=== PATIENT | female | born 2000 | race Caucasian/White ===

== ENCOUNTER → 2020-09-28 | Outpatient (REF) | payer OTHER, SELFPAY ==
[2020-09-28 11:48] LABS: APPEARANCE, URINE HAZY (CLEAR); BACTERIA, URINE AUTO NEGATIVE (NEGATIVE); BILIRUBIN, URINE AUTO NEGATIVE (NEGATIVE); BLOOD, URINE BLOOD NEGATIVE (NEGATIVE); COLOR, URINE YELLOW (YELLOW); GLUCOSE, URINE (UA) AUTO NEGATIVE (NEGATIVE); KETONE, URINE AUTO NEGATIVE (NEGATIVE); LEUKOCYTE ESTERASE, URINE AUTO NEGATIVE (NEGATIVE); MUCUS, URINE SMALL (NEGATIVE); NITRITE, URINE AUTO NEGATIVE (NEGATIVE); PROTEIN, URINE AUTO NEGATIVE (NEGATIVE); RBC, URINE AUTO 2 /HPF (0-3); SPECIFIC GRAVITY URINE AUTO 1.023 (1.002-1.035); SQUAMOUS EPITHELIAL CELL UR AU 8 /HPF (0-6); WBC, URINE AUTO 6 /HPF (0-3)
== END ==
LOC: M SFHCLERA 11:19
PROVIDERS: ATTEND Student in an Organized Health Care Education/Training Program
DX: N30.00 Acute cystitis without hematuria (principal)
CPT/HCPCS: 81001; 87086; G0463

== ENCOUNTER → 2020-10-18 | Outpatient (REF) | payer OTHER ==
[2020-10-18 14:05] LABS: APPEARANCE, URINE CLEAR (CLEAR); BACTERIA, URINE AUTO NEGATIVE (NEGATIVE); BILIRUBIN, URINE AUTO NEGATIVE (NEGATIVE); BLOOD, URINE BLOOD NEGATIVE (NEGATIVE); COLOR, URINE YELLOW (YELLOW); GLUCOSE, URINE (UA) AUTO NEGATIVE (NEGATIVE); KETONE, URINE AUTO NEGATIVE (NEGATIVE); LEUKOCYTE ESTERASE, URINE AUTO NEGATIVE (NEGATIVE); MUCUS, URINE MODERATE (NEGATIVE); NITRITE, URINE AUTO NEGATIVE (NEGATIVE); PROTEIN, URINE AUTO 1+ mg/dL (NEGATIVE); RBC, URINE AUTO 0 /HPF (0-3); SPECIFIC GRAVITY URINE AUTO 1.029 (1.002-1.035); SQUAMOUS EPITHELIAL CELL UR AU 2 /HPF (0-6); UROBILINOGEN, URINE AUTO 0.2 mg/dL (0.0-2.0); WBC, URINE AUTO 1 /HPF (0-3)
== END ==
LOC: M SMT 13:10
PROVIDERS: ATTEND Nurse Practitioner Family
DX: R39.89 Other symptoms and signs involving the genitourinary system (principal)

== ENCOUNTER 2020-12-14 10:16 | Emergency (ER) | payer OTHER ==
[~2020-12-14] VITALS: Ht 160 cm; Wt 70.4 kg
--- OUTSIDE RECORDS SUMMARY | 2020-12-14 10:21 | CCD ---
Author Author [facility] Organization [facility] Address Unknown Phone Unavailable Care Team Providers Care Inside Sales Advisor Name Role Phone Micheline Yuan Unavailable PROBLEMS Type Condition ICD9-CM Code QWC14-QP Code Onset Dates Condition S tatus SNOMED Code Notes Problem Bladder pain R39.89 Active 72397716 Problem Depression, unspecified depression type F32.9 Active [id number] ALLERGIES No Known Allergies ENCOUNTERS from 2000 to 2020-12-01 Encounter Location Date Provider Diagnosis [facility] [address] [place] [address] Nov, Micheline Yuan Depression, unspecified depression type F32.9 IMMUNIZATIONS No Information SOCIAL HISTORY Tobacco Use: Social History Observation Description Date Details (start date - stop date) Current Smoker Sex Assigned At : Social History Observation Description Sex Assigned At Unknown Audit Question Answer Notes Total Score: 0 Interpretation: Alcohol Education Language: Question Answer Notes Languages spoken: Indonesian Yazdanism: Question Answer Notes Yazdanism 33 None Sexual Hx: Question Answer Notes Had sex in the last 12 months (vaginal, oral, or anal)? Yes LMP: 09/2020 Have you ever had an STD? No with Men only Use protection? Yes How often? Some of the time Drug and Alcohol Question Answer Notes Total Score: 0 Interpretation: No problems reported Alcohol Screening: Question Answer Notes Did you have a drink containing alcohol in the past year? No Points 0 Interpretation Negative Tobacco Use: Question Answer Notes Are you a: current smoker Juul REASON FOR REFERRAL No Information VITAL SIGNS Weight 151 lbs Nov, Height 63 in Nov, BMI 26.75 kg/m2 Nov, Heart Rate 96 /min Nov, Respiratory Rate 18 /min Nov, Temperature 98.3 degrees Fahrenheit Nov, Oximetry 98% Nov, Blood pressure systolic 116 mm Hg Nov, Blood pressure diastolic 73 mm Hg Nov, MEDICATIONS Medication SIG (Take, Route, Frequency, Duration) Notes Start Da te End Date Status Pyridium 200 MG 1 tablet after meals Orally three times daily as needed for 10 days Oct, Not-Taking Macrobid 100 MG as directed Orally every 12 hours for 5 days Sep, Not-Taking Sprintec 28 0.25-35 MG-MCG 1 tablet Orally Once a day for 90 days Active PROCEDURES No Information RESULTS No Results REASON FOR VISIT referral for therapy MEDICAL (GENERAL) HISTORY Type Description Date Medical History depression Medical History recurrent UTIs Surgical History No Surgical history information Goals Section No Information Health Concerns No Information MEDICAL EQUIPMENT No Information MENTAL STATUS No Information FUNCTIONAL STATUS No Information ASSESSMENTS Encounter Date Diagnosis Assessment Notes Treatment Notes Treatm ent Clinical Notes Nov, Depression, unspecified depression type (ICD-10 - F32.9) 20 y old F with history of depression, is requesting a referral to see a counselor at this time. She denies any suicidal or homicidal ideation, feels safe at home, and reports a good support system at home through her . She refuses to be started on any medication at this time. She has been writing in a journal which helps, however would like to actually speak with someone instead. PLAN OF TREATMENT Treatment Notes Assessment Notes Clinical Notes Depression, unspecified depression type 20 y old F with history of depression, is requesting a referral to see a counselor at this time. She denies any suicidal or homicidal ideation, feels safe at home, and reports a good support system at home through her . She refuses to be started on any medication at this time. She has been writing in a journal which helps, however would like to actually speak with someone instead. Next Appt Details prn Reason:f/u as needed Provider Name:Rashi Dave Jaskaran, 2021-01-16 10:15:00 AM, [address], [place], [address], Follow Up:prnf/u as needed Insurance Providers Payer Name Payer Address Payer Phone Insured Name Patient Relati onship to Insured Coverage Start Date Coverage End Date [address] [phone] TYLER BABIN
--- OUTSIDE RECORDS SUMMARY | 2020-12-14 10:21 | CCD ---
Author Author [facility] Organization [facility] Address Unknown Phone Unavailable Support Name Relationship Address Phone TYLER BABIN Next Of Kin [address] [facility] [address] [place], [place] [id number] TYLER BABIN [facility] [address] [place] [address] Unavailable Re-disclosure Warning The records that you are about to access may contain information from federally-assisted alcohol or drug abuse programs. If such information is present, then the following federally mandated warning applies: This information has been disclosed to you from records protected by federal confidentiality rules (42 CFR part 2). The federal rules prohibit you from making any further disclosure of this information unless further disclosure is expressly permitted by the written consent of the person to whom it pertains or as otherwise permitted by 42 CFR part 2. A general authorization for the release of medical or other information is NOT sufficient for this purpose. The Federal rules restrict any use of the information to criminally investigate or prosecute any alcohol or drug abuse patient.The records that you are about to access may contain highly sensitive health information, the redisclosure of which is protected by Article 27-F of the [facility] Public Health law. If you continue you may have access to information: Regarding HIV / AIDS; Provided by facilities licensed or operated by the [facility] Office of Mental Health; or Provided by the [facility] Office for People With Developmental Disabilities. If such information is present, then the following [facility] mandated warning applies: This information has been disclosed to you from confidential records which are protected by state law. State law prohibits you from making any further disclosure of this information without the specific written consent of the person to whom it pertains, or as otherwise permitted by law. Any unauthorized further disclosure in violation of state law may result in a fine or snf sentence or both. A general authorization for the release of medical or other information is NOT sufficient authorization for further disc losure. Encounters Encounter Providers Location Date Indications Data Source(s ) Outpatient [address] [facility] [address] 11/28/2020 12:00:00 AM EST eCW1 ([facility]) Outpatient [address] [facility] [address] 10/18/2020 12:00:00 AM EST eCW1 ([facility]) Outpatient [address] [facility] [address] 09/28/2020 12:00:00 AM EST eCW1 ([facility]) Medications Medication Brand Name Start Date Product Form Dose Route Admi nistrative Instructions Pharmacy Instructions Status Indications Reaction Description Data Source(s) Phenazopyridine hydrochloride 200 MG Oral Tablet [Pyri dium] Pyridium 200 MG Pyridium 200 MG 10/18/2020 12:00:00 AM EST 1.0 {tablet_after_meals} active Pyridium 200 MG eCW1 ([facility]) Phenazopyridine hydrochloride 200 MG Oral Tablet [Pyri dium] Pyridium 200 MG Pyridium 200 MG 10/18/2020 12:00:00 AM EST 1.0 {tablet_after_meals} suspended Pyridium 200 MG eCW1 ([facility]) NITROFURANTOIN, MACROCRYSTALS 25 MG / Ni trofurantoin, Monohydrate 75 MG Oral Capsule [Macrobid] Macrobid 100 MG Macrobid 100 MG 09/28/2020 12:00:00 AM EST active Macrobid 100 MG eCW1 ([facility]) NITROFURANTOIN, MACROCRYSTALS 25 MG / Ni trofurantoin, Monohydrate 75 MG Oral Capsule [Macrobid] Macrobid 100 MG Macrobid 100 MG 09/28/2020 12:00:00 AM EST suspended Macrobid 100 MG eCW1 ( [facility]) NITROFURANTOIN, MACROCRYSTALS 25 MG / Ni trofurantoin, Monohydrate 75 MG Oral Capsule [Macrobid] Macrobid 100 MG Macrobid 100 MG 09/28/2020 12:00:00 AM EST suspended Macrobid 100 MG eCW1 ( [facility]) Insurance Providers Payer name Policy type / Coverage type Policy ID Covered alliance party ID Covered alliance party's relationship to dickinson Policy Dickinson Plan Information [facility] [id number] [facility] [id number] SELF PAY ONLY UNK SP UNK Problems, Conditions, and Diagnoses Code Display Name Description Problem Type Effective Dates Data Source(s) F32.9 [id number] Depression, unspecified depression type P roblem 11/28/2020 12:00:00 AM EST eCW1 ([facility]) R39.89 Bladder pain Bladder pain Problem 10/18/2020 12:00:00 A M EST eCW1 ([facility]) Results ID Date Data Source URINE CULTURE 10/18/2020 12:00:00 AM EST eCW1 ([facility]) Name Value Range Interpretation Code Description Data Laura rce(s) Supporting Document(s) URINE CULTURE eCW1 ([facility]) ID Date Data Source UA URINALYSIS 10/18/2020 12:00:00 AM EST eCW1 ([facility]) Name Value Range Interpretation Code Description Data Laura rce(s) Supporting Document(s) UA URINALYSIS eCW1 ([facility]) ID Date Data Source [id number] 08/27/2020 12:00:00 AM EDT [facility] Name Value Range Interpretation Code Description Data Laura rce(s) Supporting Document(s) SARS coronavirus 2 RNA [facility] This lab was ordered by [facility] and rep orted by [facility]. Procedure Social History Code Duration Value Status Description Data Source(s ) Smoking 11/28/2020 12:00:00 AM EST Current Smoker completed Curre nt Smoker eCW1 ([facility]) Smoking 10/18/2020 12:00:00 AM EST Current Smoker completed Curre nt Smoker eCW1 ([facility]) Smoking 09/28/2020 12:00:00 AM EST Current Smoker completed Curre nt Smoker eCW1 ([facility]) Vital Signs ID Date Data Source UNK Name Value Range Interpretation Code Description Data Source(s) Diastolic blood pressure 73 mm[Hg] 73 mm[Hg] eCW1 ([facility]) Systolic blood pressure 116 mm[Hg] 116 mm[Hg] e CW1 ([facility]) Body temperature 98.3 [degF] 98.3 [degF] eCW1 ( [facility]) Respiratory rate 18 /min 18 /min eCW1 ([facility]) Heart rate 96 /min 96 /min eCW1 ([facility]) Body mass index (BMI) [Ratio] 26.75 kg/m2 26.75 kg/m2 eCW1 ([facility]) Body height 63 [in_i] 63 [in_i] eCW1 ([facility]) Body weight 151 [lb_av] 151 [lb_av] eCW1 ([facility]) Diastolic blood pressure 76 mm[Hg] 76 mm[Hg] eCW1 ([facility]) Systolic blood pressure 118 mm[Hg] 118 mm[Hg] e CW1 ([facility]) Body temperature 96.2 [degF] 96.2 [degF] eCW1 ( [facility]) Respiratory rate 18 /min 18 /min eCW1 ([facility]) Heart rate 85 /min 85 /min eCW1 ([facility]) Body mass index (BMI) [Ratio] 26.60 kg/m2 26.60 kg/m2 eCW1 ([facility]) Body height 63 [in_i] 63 [in_i] eCW1 ([facility]) Body weight 150.2 [lb_av] 150.2 [lb_av] eCW1 ([facility]) Diastolic blood pressure 71 mm[Hg] 71 mm[Hg] eCW1 ([facility]) Systolic blood pressure 118 mm[Hg] 118 mm[Hg] e CW1 ([facility]) Body temperature 98.3 [degF] 98.3 [degF] eCW1 ( [facility]) Respiratory rate 18 /min 18 /min eCW1 ([facility]) Heart rate 85 /min 85 /min eCW1 ([facility]) Body mass index (BMI) [Ratio] 26.75 kg/m2 26.75 kg/m2 eCW1 ([facility]) Body height 63 [in_i] 63 [in_i] eCW1 ([facility]) Body weight 151 [lb_av] 151 [lb_av] eCW1 ([facility]) Patient Treatment Plan of Care Planned Activity Planned Date Details Description Data Source (s) Phenazopyridine hydrochloride 200 MG Oral Tablet [Pyri dium] 10/18/2020 12:00:00 AM EST eCW1 ([facility]) NITROFURANTOIN, MACROCRYSTALS 25 MG / Ni trofurantoin, Monohydrate 75 MG Oral Capsule [Macrobid] 09/28/2020 12:00:00 AM EST eC W1 ([facility])
--- OUTSIDE RECORDS SUMMARY | 2020-12-14 10:21 | CCD ---
Author Author [facility] Organization [facility] Address Unknown Phone Unavailable Care Team Providers Care Silo Painter Name Role Phone Jayant Yuanell Unavailable PROBLEMS No Information ALLERGIES No Known Allergies ENCOUNTERS from 2000 to 2020-09-29 Encounter Location Date Provider Diagnosis [facility] [address] [place] [address] Sep, Micheline Yuan Encounter for medical examination to [facility] Z00.00 ; Acute cystitis without hematuria N30.00 and Encounter for surveillance of contraceptive pills Z30.41 IMMUNIZATIONS No Information SOCIAL HISTORY Tobacco Use: Social History Observation Description Date Details (start date - stop date) Current Smoker Sex Assigned At : Social History Observation Description Sex Assigned At Unknown Audit Question Answer Notes Total Score: 0 Interpretation: Alcohol Education Language: Question Answer Notes Languages spoken: Ukrainian Baptism: Question Answer Notes Baptism 33 None Drug and Alcohol Question Answer Notes Total Score: 0 Interpretation: No problems reported Tobacco Use: Question Answer Notes Are you a: current smoker Juul REASON FOR REFERRAL No Information VITAL SIGNS Weight 151 lbs Sep, Height 63 in Sep, BMI 26.75 kg/m2 Sep, Heart Rate 85 /min Sep, Respiratory Rate 18 /min Sep, Temperature 98.3 degrees Fahrenheit Sep, Oximetry 99 Sep, Blood pressure systolic 118 mm Hg Sep, Blood pressure diastolic 71 mm Hg Sep, MEDICATIONS Medication SIG (Take, Route, Frequency, Duration) Start Date En d Date Status Sprintec 28 0.25-35 MG-MCG 1 tablet Orally Once a day for 90 days Active Macrobid 100 MG as directed Orally every 12 hours for 5 days 12 Nov , 2020 Active PROCEDURES No Information RESULTS Component Value Reference Range UA URINALYSIS Reviewed date:09/28/2020 11:57:25 Interpretation: Performing Lab:[facility] [address] [facility] [address] , ,[place] [address] URINE CULTURE Reviewed date:09/29/2020 10:05:44 Interpretation:Normal Performing Lab:[facility] [address] [facility] [address] , ,[place] [address] REASON FOR VISIT NEW PATIENT , UTI MEDICAL (GENERAL) HISTORY Type Description Date Medical History depression Medical History recurrent UTIs Surgical History No know Surgical history Goals Section No Information Health Concerns No Information MEDICAL EQUIPMENT No Information MENTAL STATUS No Information FUNCTIONAL STATUS No Information ASSESSMENTS Encounter Date Diagnosis Notes Sep, Encounter for medical examin ation to establish care (ICD-10 - Z00.00) Sep, Encounter for surveillance o f contraceptive pills (ICD-10 - Z30.41) Sep, Acute cystitis without hematuria (ICD-10 - N30.00) PLAN OF TREATMENT Medication Medication Name Sig Start Date Stop Date Sprintec 28 0.25-35 MG-MCG 1 tablet Orally Once a day for 90 day s Macrobid 100 MG as directed Orally every 12 hours for 5 days Sep, Treatment Notes Assessment Notes Clinical Notes Acute cystitis without hematuria Patient was advised to keep well-hydrated. Drink at least 8 glasses of water per day. Advised not to go long periods of time without voiding. We'll follow-up urine culture. Patient was advised that if UTI symptoms do not improve after 3 days of antibiotic use, or if she develops any fevers or malaise either go to the ER immediately or return for reevaluation. Patient expressed understanding and agreed with plan. Encounter for surveillance of contraceptive pills Patient requested refill of control at this time. Next Appt Details prn Reason: Provider Name:Kain Gann Tank, 2020-09 09:00:00 AM, [address], [place], [address], Insurance Providers Payer Name Payer Address Payer Phone Insured Name Patient Relati onship to Insured Coverage Start Date Coverage End Date SELF PAY ONLY - SP1 TYLER BABIN
--- OUTSIDE RECORDS SUMMARY | 2020-12-14 10:21 | CCD ---
Author Author [facility] Organization [facility] Address Unknown Phone Unavailable Care Team Providers Care Plastic Printer Name Role Phone Rashi Jessica Unavailable PROBLEMS Type Condition ICD9-CM Code ZCL39-GQ Code Onset Dates Condition S tatus SNOMED Code Notes Problem Bladder pain R39.89 Active [id number] ALLERGIES No Known Allergies ENCOUNTERS from 2000 to 2020-10-23 Encounter Location Date Provider Diagnosis [facility] [address] [place] [address] Oct Rashi Jessica Bladder pain R39.89 IMMUNIZATIONS No Information SOCIAL HISTORY Tobacco Use: Social History Observation Description Date Details (start date - stop date) Current Smoker Sex Assigned At : Social History Observation Description Sex Assigned At Unknown Audit Question Answer Notes Total Score: 0 Interpretation: Alcohol Education Language: Question Answer Notes Languages spoken: Belgian Judaism: Question Answer Notes Judaism 33 None Sexual Hx: Question Answer Notes [...] FOR REFERRAL No Information VITAL SIGNS Weight 150.2 lbs Oct, Height 63 in Oct, BMI 26.60 kg/m2 Oct, Heart Rate 85 /min Oct, Respiratory Rate 18 /min Oct, Temperature 96.2 degrees Fahrenheit Oct, Oximetry 98 Oct, Blood pressure systolic 118 mm Hg Oct, Blood pressure diastolic 76 mm Hg Oct, MEDICATIONS Medication SIG (Take, Route, Frequency, Duration) Notes Start Da te End Date Status Macrobid 100 MG as directed Orally every 12 hours for 5 days Sep, Not-Taking Sprintec 28 0.25-35 MG-MCG 1 tablet Orally Once a day for 90 days Active Pyridium 200 MG 1 tablet after meals Orally three times daily as needed for 10 days Oct, Active PROCEDURES No Information RESULTS Component Value Reference Range UA URINALYSIS Reviewed date:10/18/2020 15:02:33 Interpretation: Performing Lab:[facility] [address] [facility] [address] , ,[place] [address] URINE CULTURE Reviewed date:10/19/2020 10:31:12 Interpretation: Performing Lab:[facility] [address] [facility] [id number] , ,[place] [address] REASON FOR VISIT Recurrent urinary tract infection acute cystitis withouT hematuria. MEDICAL (GENERAL) HISTORY Type Description Date Medical History depression Medical History recurrent UTIs Surgical History No Surgical history information Goals Section No Information Health Concerns No Information MEDICAL EQUIPMENT No Information MENTAL STATUS No Information FUNCTIONAL STATUS No Information ASSESSMENTS Encounter Date Diagnosis Assessment Notes Treatment Notes Treatm ent Clinical Notes Oct, Bladder pain (ICD-10 - R39.89) Will send UA and culture today. She will call our office with any symptoms so we can track and see if she is having true UTI's or if it is more of and intersticial cystitis. Pyridium sent to [facility] to use prn for symptoms. F/U in 3 months or sooner if needed. PLAN OF TREATMENT Medication Medication Name Sig Start Date Stop Date Pyridium 200 MG 1 tablet after meals Orally three times daily as needed for 10 days Oct, Treatment Notes Assessment Notes Clinical Notes Bladder pain Will send UA and cul ture today.She will call our office with any symptoms so we can track and see if she is having true UTI's or if it is more of and intersticial cystitis.[facility].F/U in 3 months or sooner if needed. Next Appt Details 3 Months Reason:UTI's Provider Name:Rashi Jessica, 2021-01-16 10:15:00 AM, [address], [place], [address], Follow Up:3 MonthsUTI's Insurance Providers Payer Name Payer Address Payer Phone Insured Name Patient Relati onship to Insured Coverage Start Date Coverage End Date [place] [phone] TYLER BABIN
[2020-12-14] MEDS ORDERED: SPRI28TA (10:32)
[2020-12-14] MEDS ORDERED: METOCLOPRAMIDE INJ 10MG/2ML VIAL (J2765 PER 1) IV ONE (11:45)
[2020-12-14] MEDS ORDERED: NS 1,000 ML IV ONE (11:45)
[2020-12-14] MEDS ORDERED: diphenhydrAMINE 50MG/ML VIAL (J1200) IV ONE (11:45)
[2020-12-14] MEDS ORDERED: KETOROLAC 30 MG/ML 1ML VIAL IM ONE (11:45)
[2020-12-14 11:54] LABS: BASO # 0.1 10^3/uL (0.0-0.2); BASO % 0.7 % (0.0-1.0); EOS # 0.1 10^3/uL (0.0-0.5); EOS % 1.3 % (0.0-3.0); HEMATOCRIT 39.9 % (36.0-47.0); HEMOGLOBIN 13.5 g/dl (12.0-15.5); LYMPH # 2.1 10^3/uL (1.5-5.0); LYMPH % 19.7 % (24.0-44.0); MEAN CORPUSCULAR HEMOGLOBIN 29.8 pg (27.0-33.0); MEAN CORPUSCULAR HGB CONC 33.8 g/dl (32.0-36.5); MEAN CORPUSCULAR VOLUME 88.1 fl (80.0-96.0); MONO # 0.6 10^3/uL (0.0-0.8); MONO % 5.8 % (0.0-5.0); NEUTROPHILS # 7.7 10^3/uL (1.5-8.5); NEUTROPHILS % 72.2 % (36.0-66.0); PLATELET COUNT, AUTOMATED 358 10^3/uL (150-450); RED BLOOD COUNT 4.53 10^6/uL (4.00-5.40); WHITE BLOOD COUNT 10.7 10^3/uL (4.0-10.0)
--- OUTSIDE RECORDS SUMMARY | 2020-12-14 11:57 | CCD ---
Author Author [facility] Organization [facility] Address Unknown Phone Unavailable Support Name Relationship Address Phone UE Next Of Kin Unknown Unavailable OLAFTYLER BEVERLY Next Of Kin [id number] [place], [place] [id number] OLAF TYLER [facility] [address] [place] [address] Unavailable Re-disclosure Warning The records that you [...] is protected by Article 27-F of the [facility] Public Health law. If you continue you may have access to information: Regarding HIV / AIDS; Provided by facilities licensed or operated by the [facility] Office of Mental Health; or Provided by the [facility] Office for People With Developmental Disabilities. If such information is present, then the following [facility] mandated warning applies: This information has [...] law may result in a fine or halfway sentence or both. A general authorization for the release of medical or other information is NOT sufficient authorization for further disc losure. Encounters Encounter Providers Location Date Indications Data Source(s ) Outpatient [address] [facility] [place] [address] 11/28/2020 12:00:00 AM EST eCW1 ([facility]) Outpatient [address] [facility] [place] [address] 10/18/2020 12:00:00 AM EST eCW1 ([facility]) Outpatient [address] [facility] [place] [address] 09/28/2020 12:00:00 AM EST eCW1 ([facility]) Medications Medication Brand Name Start Date Product Form Dose Route Admi nistrative Instructions Pharmacy Instructions Status Indications Reaction Description Data Source(s) Phenazopyridine hydrochloride 200 MG Oral Tablet [Pyri dium] Pyridium 200 MG Pyridium 200 MG 10/18/2020 12:00:00 AM EST 1.0 {tablet_after_meals} active Pyridium 200 MG eCW1 ([facility]) Phenazopyridine hydrochloride 200 MG Oral Tablet [Pyri dium] Pyridium 200 MG Pyridium 200 MG 10/18/2020 12:00:00 AM EST 1.0 {tablet_after_meals} suspended Pyridium 200 MG eCW1 ([facility]) NITROFURANTOIN, MACROCRYSTALS 25 MG / Ni trofurantoin, Monohydrate 75 MG Oral Capsule [Macrobid] Macrobid 100 MG Macrobid 100 MG 09/28/2020 12:00:00 AM EST active Macrobid 100 MG eCW1 ([facility]) NITROFURANTOIN, MACROCRYSTALS 25 MG / Ni trofurantoin, Monohydrate 75 MG Oral Capsule [Macrobid] Macrobid 100 MG Macrobid 100 MG 09/28/2020 12:00:00 AM EST suspended Macrobid 100 MG eCW1 ( [facility]) NITROFURANTOIN, MACROCRYSTALS 25 MG / Ni trofurantoin, Monohydrate 75 MG Oral Capsule [Macrobid] Macrobid 100 MG Macrobid 100 MG 09/28/2020 12:00:00 AM EST suspended Macrobid 100 MG eCW1 ( [facility]) Insurance Providers Payer name Policy type / Coverage type Policy ID Covered alliance party ID Covered alliance party's relationship to dickinson Policy [employer] Plan Information [facility] [id number] SELF PAY ONLY UNK SP UNK Problems, Conditions, and Diagnoses Code Display Name Description Problem Type Effective Dates Data Source(s) F32.9 17610059 Depression, unspecified depression type P roblem 11/28/2020 12:00:00 AM EST eCW1 ([facility]) R39.89 Bladder pain Bladder pain Problem 10/18/2020 12:00:00 A M EST eCW1 ([facility]) Results ID Date Data Source URINE CULTURE 10/18/2020 12:00:00 AM EST eCW1 ([facility]) Name Value Range Interpretation Code Description Data Laura rce(s) Supporting Document(s) URINE CULTURE eCW1 ([facility]) ID Date Data Source UA URINALYSIS 10/18/2020 12:00:00 AM EST eCW1 ([facility]) Name Value Range Interpretation Code Description Data Laura rce(s) Supporting Document(s) UA URINALYSIS eCW1 ([facility]) ID Date Data Source [id number] 08/27/2020 12:00:00 AM EDT [facility] Name Value Range Interpretation Code Description Data Laura rce(s) Supporting Document(s) SARS coronavirus 2 RNA [facility] This lab was ordered by [facility] and rep orted by [facility]. Procedure Social History Code Duration Value Status Description Data Source(s ) Smoking 11/28/2020 12:00:00 AM EST Current Smoker completed Curre nt Smoker eCW1 ([facility]) Smoking 10/18/2020 12:00:00 AM EST Current Smoker completed Curre nt Smoker eCW1 ([facility]) Smoking 09/28/2020 12:00:00 AM EST Current Smoker completed Curre nt Smoker eCW1 ([facility]) Vital Signs ID Date Data Source UNK Name Value Range Interpretation Code Description Data Source(s) Diastolic blood pressure 73 mm[Hg] 73 mm[Hg] eCW1 ([facility]) Systolic blood pressure 116 mm[Hg] 116 mm[Hg] e CW1 ([facility]) Body temperature 98.3 [degF] 98.3 [degF] eCW1 ( [facility]) Respiratory rate 18 /min 18 /min eCW1 ([facility]) Heart rate 96 /min 96 /min eCW1 ([facility]) Body mass index (BMI) [Ratio] 26.75 kg/m2 26.75 kg/m2 eCW1 ([facility]) Body height 63 [in_i] 63 [in_i] eCW1 ([facility]) Body weight 151 [lb_av] 151 [lb_av] eCW1 ([facility]) Diastolic blood pressure 76 mm[Hg] 76 mm[Hg] eCW1 ([facility]) Systolic blood pressure 118 mm[Hg] 118 mm[Hg] e CW1 ([facility]) Body temperature 96.2 [degF] 96.2 [degF] eCW1 ( [facility]) Respiratory rate 18 /min 18 /min eCW1 ([facility]) Heart rate 85 /min 85 /min eCW1 ([facility]) Body mass index (BMI) [Ratio] 26.60 kg/m2 26.60 kg/m2 W1 ([facility]) Body height 63 [in_i] 63 [in_i] eCW1 ([facility]) Body weight 150.2 [lb_av] 150.2 [lb_av] eCW1 ([facility]) Diastolic blood pressure 71 mm[Hg] 71 mm[Hg] eCW1 ([facility]) Systolic blood pressure 118 mm[Hg] 118 mm[Hg] e CW1 ([facility]) Body temperature 98.3 [degF] 98.3 [degF] eCW1 ( [facility]) Respiratory rate 18 /min 18 /min eCW1 ([facility]) Heart rate 85 /min 85 /min eCW1 ([facility]) Body mass index (BMI) [Ratio] 26.75 kg/m2 26.75 kg/m2 eCW1 ([facility]) Body height 63 [in_i] 63 [in_i] eCW1 ([facility]) Body weight 151 [lb_av] 151 [lb_av] eCW1 ([facility]) Patient Treatment Plan of Care Planned Activity Planned Date Details Description Data Source (s) Phenazopyridine hydrochloride 200 MG Oral Tablet [Pyri dium] 10/18/2020 12:00:00 AM EST eCW1 ([facility]) NITROFURANTOIN, MACROCRYSTALS 25 MG / Ni trofurantoin, Monohydrate 75 MG Oral Capsule [Macrobid] 09/28/2020 12:00:00 AM EST eC W1 ([facility])
[2020-12-14] MEDS ORDERED: KETOROLAC 30 MG/ML 1ML VIAL IV ONE (12:00)
[2020-12-14 13:09] VITALS: BP 118/63
== END 2020-12-14 13:11 | disposition home or self-care (01) ==
LOC: M ED 10:16
DX: G43.909 Migraine, unspecified, not intractable, without status migrainosus (principal); Z79.3 Long term (current) use of hormonal contraceptives
CPT/HCPCS: 80047; 84443; 84702; 85025; 96361; 96372; 96374; 96375; 99284; J1200; J1885; J2765

== ENCOUNTER → 2021-03-23 | Outpatient (REF) | payer OTHER ==
[~2021-03-23] MED LIST: SPRI28TA
== END ==
LOC: M SFHCLERA 17:19
PROVIDERS: ATTEND Nurse Practitioner Family
DX: J40 Bronchitis, not specified as acute or chronic (principal)
CPT/HCPCS: 71046; 87426; G0463; U0003

== ENCOUNTER → 2021-03-23 | Outpatient (CLI) | payer OTHER ==
--- NOTE | 2021-03-23 16:52 | REP ---
INDICATION: BRONCHITIS, NOT SPECIFIED ACUTE OR CHRONIC. COMPARISON: None. FINDINGS: The superior mediastinal structures are midline. The cardiac silhouette is unremarkable in size, shape, and position. The diaphragmatic surfaces of the lungs are regular, and the costophrenic angles are clear. The pulmonary armstrong are clear. The imaged osseous structures are intact. IMPRESSION: There is no acute cardiopulmonary disease. <Electronically signed by Nayan Ortega > 03/23/21 2524
== END ==
LOC: M RAD 16:13
PROVIDERS: ATTEND Nurse Practitioner Family
DX: J40 Bronchitis, not specified as acute or chronic (principal)

== ENCOUNTER 2022-03-10 20:31 | Emergency (ER) | payer OTHER ==
[~2022-03-10] VITALS: Ht 160 cm; Wt 70.0 kg
[2022-03-10 20:32] VITALS: BP 136/74
[2022-03-10] MEDS ORDERED: PREN29CH2 PO (20:34)
== END 2022-03-10 21:21 | disposition left against medical advice (07) ==
LOC: M ED 20:31
DX: Z53.29 Procedure and treatment not carried out because of patient's decision for other reasons (principal)